=== PATIENT | male | born 1980 | race African-American/Black ===

== ENCOUNTER 2021-01-24 11:40 | Inpatient (IN) ==
--- NOTE | 2021-01-24 11:55 | Emergency Department Note ---
Impression & Plan Pneumonia due to COVID-19 virus, Hypoxia, Respiratory failure ED Provider Note NAME: RICHARD CY1957 JASS AGE: 40 SEX: M : 1980 ARRIVES VIA: Ambulance INFORMANT: Patient ED PROVIDER(S): Aki Reyes DO CHIEF COMPLAINT: Cough and shortness of breath HPI: Patient is a 40-year-old male who presents ER for upper respiratory symptoms. It started around the of this month. She has cough and congestion as well as decreased taste and smell. Admits to shortness of breath. Denies any chest pain. No belly pain, nausea, vomiting, or diarrhea. No dysur ia, urgency, or frequency. No other exacerbating or remitting factors. ROS: See above HPI for pertinent positives & negatives. A total of 10 systems reviewed and were otherwise negative. PAST MEDICAL HISTORY:See Below PAST SURGICAL HISTORY:See Below FAMILY HISTORY:See Below SOCIAL HISTORY:See Below HOME MEDICATIONS:See Below ALLERGIES:See Below VITALS:See Below PHYSICAL EXAMINATION: GENERAL: Sitting up in bed, alert, disheveled with a persistent cough on nasal cannula EYE EXAM: normal conjunctiva. PERRL and EOM's grossly intact. OROPHARYNX: Dry mucous membranes NECK: supple, no nuchal rigidity, no adenopathy, non-tender LUNGS: Clear to auscultation. Normal chest wall mechanics HEART: no murmurs, S1 normal and S2 normal ABDOMEN: abdomen soft, non-tender, normo-active bowel sounds, no masses, no rebound or guarding. UPPER EXTREMITIES: upper extremities are grossly normal. LOWER EXTREMITIES: No pitting edema. NEURO EXAM: Normal sensorium, cranial nerves II-XII grossly intact, normal s peech, no gross weakness of arms, no gross weakness of legs. MEDICAL DECISION MAKING: Patient 40-year-old male who presents ER for upper respiratory symptoms. Known Covid positive. Found to be hypoxic last night in the low 80s. Admits to cough congestion. IV was established blood was obtained. Labs show no significant leukocytosis or anemia. BMP with mild hyponatremia. Creatinine slightly up at 1.6 without any previous to compare to. LFTs bilirubin are unremarkable. Lipase was normal. Patient was Covid positive. He was given steroids and fluids. Chest x-ray with bilateral infiltrates. He remained on nasal cannula. Updated bedside admitted to the hospitalist for further work-up. Triage Nursing notes reviewed. Limited review of prior medical records performed Vital Signs: reviewed and remarkable for hypoxia Differential diagnosis: Differential diagnoses includes but is not limited to pneumonia, bronchitis, COPD/Asthma exacerbation, pneumothorax, pulmonary embolism, congestive heart failure, acute coronary syndrome ER treatment provided: See below Diagnostics interpreted by me: ECG: Sinus tachycardia rate of 101 Normal axis T wave inversion lead III No PVCs QTC 466 Cardiac Monitoring: An order was placed for continuous cardiac monitoring. The monitor shows a rate of 98 with sinus rhythm. Laboratory studies: As stated above and show below. Imaging studies: Chest x-ray with bilateral infiltrates Consultation(s): Discussed with Dr. Danielle Ernandez for admission Procedures: none Critical Care: I have personally spent 32 minutes of critical care time in the direct management of this patient. This includes bedside care, interpretation of diagnostic studies, and testing, discussion with consultants, patient, and family members, and other required patient management activities. This 32 minutes is in excess of all separately billable procedures. Past Med/Surg History Medical History (Updated 01/24/21 @ 15:13 by Aki Reyes DO) Obesity (BMI 30-39.9) Surgical History (Updated 01/24/21 @ 14:17 by Danielle Ernandez MD) No significant past surgical history Social History Smoking Status: Current every day smoker Allergies Allergies Allergy/AdvReac Type Severity Reaction Status Date / Time No Known Allergies Allergy Unverified 01/24/21 13:47 Home Meds Home Medications Medication Instructions Recorded Confirmed No Known Home Medications 01/24/21 01/24/21 Results & Data (ED) Vital Signs Vital Signs - 24 hr 01/24/21 12:17 01/24/21 13:41 Temperature 36.8 C Temperature Source Oral Pulse Rate 102 H Pulse Rate [Finger] 96 H Respiratory Rate 20 24 Blood Pressure 129/81 Blood Pressure [Left Arm] 147/83 H Blood Pressure Mean 97 Blood Pressure Mean [Left Arm] 104 Pulse Oximetry 92 95 Oxygen Delivery Method Nasal Cannula Nasal Cannula Oxygen Flow Rate 3 3 Sepsis Recent Fever Within 48 Hours No Sepsis New/Unexplained Change in Mental Status No Sepsis Action Taken by Nursing No Action Required Laboratory Data Result diagrams: 01/24/21 12:10 01/24/21 12:10 Lab Results 11/29/21 11/29/21 11/29/21 Range/Units 12:10 12:10 12:10 WBC 6.83 (4.8-10.8) K/uL RBC 5.10 (4.7-6.1) M/uL Hgb 13.7 L (14.0-18.0) g/dL Hct 40.4 L (42-52) % MCV 79.2 L (80-100) fL MCH 26.9 (25-34) pg MCHC 33.9 (32-36) g/dL RDW Std Deviation 38.4 (36.4-46.3) fL RDW Coeff of Rosie 13.4 (11.5-14.5) % Plt Count 170 (130-400) K/uL MPV 11.8 H (7.4-10.4) fL Immature Gran % (Auto) 0.3 % Neut % (Auto) 68.2 % Lymph % (Auto) 23.9 % [place] % (Auto) 7.2 % Eos % (Auto) 0.0 % Baso % (Auto) 0.4 % Neut # (Auto) 4.66 (1.4-6.5) K/uL Lymph # (Auto) 1.63 (1.2-3.4) K/uL [place] # (Auto) 0.49 (0.11-0.59) K/uL Eos # (Auto) 0.00 (0-0.5) K/uL Baso # (Auto) 0.03 (0-0.2) K/uL Immature Gran # (Auto) 0.02 (0.00-0.02) K/uL Sodium 129 L (136-145) mmol/L Potassium 3.9 (3.5-5.1) mmol/L Chloride 97 L (98-107) mmol/L Carbon Dioxide 21 (21-32) mmol/L Anion Gap 11.0 (3-11) BUN 36 H (7-18) mg/dl Creatinine 1.60 H (0.6-1.4) mg/dl Est Cr Clr Drug Dosing 82.0 ml/min Est GFR ( Amer) 62.4 ml/min Est GFR (Non-Af Amer) 53.9 ml/min BUN/Creatinine Ratio 22.4 H (10-20) Glucose 115 H (70-99) mg/dl Calcium 8.6 (8.5-10.1) mg/dl Total Bilirubin 0.5 (0.2-1) mg/dl AST 84 H (15-37) U/L ALT 43 (12-78) U/L Alkaline Phosphatase 45 (45-117) U/L Troponin I < 0.015 (0-0.045) ng/ml Total Protein 8.4 H (6.4-8.2) gm/dl Albumin 3.1 L (3.4-5.0) gm/dl Globulin 5.3 H (2.5-4.0) gm/dl Albumin/Globulin Ratio 0.6 L (0.9-2) Lipase 182 (73-393) U/L SARS-CoV-2 (PCR) POSITIVE A* (Negative) Administered Medications Remdesivir 200 mg/ Sodium (Chloride) 250 mls @ 125 mls/hr IV ONE STA; Protocol Stop: 01/24/21 15:41 Last Admin: 01/24/21 14:28 Dose: 125 mls/hr Documented by: [id number] Discontinued Medications Dexamethasone Sodium Phosphate (DexamethasonePf 10 Mg/Ml Vial) 6 mg IV NOW ONE Stop: 01/24/21 13:22 Last Admin: 01/24/21 13:39 Dose: 6 mg Documented by: [id number] Sodium Chloride (Nss 1000ml) 1,000 mls @ 999 mls/hr IV .Q1H1M ONE Stop: 01/24/21 14:21 Last Infusion: 01/24/21 14:28 Dose: 0 mls/hr Documented by: [id number] Admin: 01/24/21 13:39 Dose: 999 mls/hr Documented by: [id number] Imaging Data Radiologist's Impression: Chest X-Ray 01/24/21 11:52 XR chest 1V portable CLINICAL HISTORY: Chest Pain. COMPARISON STUDY: No previous studies for comparison. TECHNIQUE: 1 view of the chest FINDINGS: Single frontal view of the chest demonstrates the cardiomediastinal silhouette to be within normal limits. Patchy interstitial and alveolar opacities are present particularly at the lung bases bilaterally. The findings are most characteristic of a viral type pneumonitis. Covid 19 pneumonia should be excluded. There is no evidence for pleural effusion. There is no evidence for vascular congestion. There is no acute osseous pathology. IMPRESSION: Patchy interstitial and alveolar opacities bilaterally characteristic of a viral type pneumonitis and probable early Covid 19 pneumonia. ACT 112: Negative or not required by law. Electronically signed by: Ezio Lara M.D. 01/24/2021 12:33 PM Discharge Plan Visit Data Chief Complaint: Respiratory Problems ED Provider: Aki Reyes Discharge Problem: Pneumonia due to COVID-19 virus, Hypoxia, Respiratory failure Forms Stand Alone Forms: DrEd Online Doctor Prescriptions Prescriptions: No Action No Known Home Medications RF: 0 Referrals Referrals: PCP,NO [Physician] - Discharge Problem: Respiratory failure Qualifiers: Chronicity: acute Respiratory failure complication: hypoxia Qualified Code(s): J96.01 - Acute respiratory failure with hypoxia
[2021-01-24 12:28] LABS: Hematocrit (blood only) 40.4 % (42-52); Hemoglobin 13.7 g/dL (14.0-18.0); Mean Corpuscular Hemoglobin 26.9 pg (25-34); Mean Corpuscular Hgb Conc 33.9 g/dL (32-36); Mean Corpuscular Volume 79.2 fL (80-100); Mean Platelet Volume 11.8 fL (7.4-10.4); Platelet Count 170 K/uL (130-400); RDW Coefficient of Variation 13.4 % (11.5-14.5); RDW Standard Deviation 38.4 fL (36.4-46.3); White Blood Count 6.83 K/uL (4.8-10.8)
--- NOTE | 2021-01-24 12:35 | XRay Report ---
XR chest 1V portable CLINICAL HISTORY: Chest Pain. COMPARISON STUDY: No previous studies for comparison. TECHNIQUE: 1 view of the chest FINDINGS: Single frontal view of the chest demonstrates the cardiomediastinal silhouette to be within normal li mits. Patchy interstitial and alveolar opacities are present particularly at the lung bases bilateral ly. The findings are most characteristic of a viral type pneumonitis. Covid 19 pneumonia should be ex cluded. There is no evidence for pleural effusion. There is no evidence for vascular congestion. Ther e is no acute osseous pathology. IMPRESSION: Patchy interstitial and alveolar opacities bilaterally characteristic of a viral type pne umonitis and probable early Covid 19 pneumonia. ACT 112: Negative or not required by law. Electronically signed by: Ezio Lara M.D. 01/24/2021 12:33 PM
[2021-01-24 12:44] LABS: Alanine Aminotransferase 43 U/L (12-78); Albumin Level 3.1 gm/dl (3.4-5.0); Aspartate Aminotransferase 84 U/L (15-37); BUN Creatinine Ratio 22.4 (10-20); Blood Urea Nitrogen 36 mg/dl (7-18); Calcium 8.6 mg/dl (8.5-10.1); Carbon Dioxide 21 mmol/L (21-32); Chloride 97 mmol/L (98-107); Est GFR (African American) 62.4 ml/min; Est GFR (Non-African American) 53.9 ml/min; Glucose 115 mg/dl (70-99); Lipase 182 U/L (73-393); Potassium 3.9 mmol/L (3.5-5.1); Sodium 129 mmol/L (136-145)
[2021-01-24 12:49] LABS: Albumin Globulin Ratio 0.6 (0.9-2); Alkaline Phosphatase 45 U/L (45-117); Bilirubin,Total 0.5 mg/dl (0.2-1); Globulin 5.3 gm/dl (2.5-4.0); Total Protein 8.4 gm/dl (6.4-8.2); Troponin I < 0.015 ng/ml (0-0.045)
[2021-01-24 12:52] LABS: Basophils # (auto) 0.03 K/uL (0-0.2); Basophils % (auto) 0.4 %; Immature Granulocytes # (auto) 0.02 K/uL (0.00-0.02); Immature Granulocytes % (auto) 0.3 %; Lymphocytes # (auto) 1.63 K/uL (1.2-3.4); Lymphocytes % (auto) 23.9 %; Monocytes # (auto) 0.49 K/uL (0.11-0.59); Monocytes % (auto) 7.2 %; Neutrophils # (auto) 4.66 K/uL (1.4-6.5); Neutrophils % (auto) 68.2 %
--- NOTE | 2021-01-24 13:18 | History & Physical Report ---
Date of Service January 24, 2021 Assessment & Plan (1) Pneumonia due to COVID-19 virus: Plan: Symptoms ongoing for 7-8 days at the present prior to arrival Pulse ox 80% on room air at the present and 86% here, requiring 3 L nasal cannula to keep pulse ox greater than 92% Chest x-ray with bilateral infiltrates With diarrhea secondary to Covid-19 causing dehydration, hyponatremia, acute kidney injury He is unvaccinated for Covid-19 -Admit to medical floor telemetry, Covid unit on precautions -Was given 1 L of normal saline in the ER, will give 1 more liter of LR for hydration -Start dexamethasone 6 mg IV once daily x10-day course -Start Remdesivir x5-day course-creatinine clearance is greater than 30 despite the acute kidney injury and expect acute kidney injury to improve with hydration -Incentive spirometry, flutter valve -DuoNebs every 6 hours scheduled at least for the first 24 hours -Encouraged prone positioning if possible -Continue supplemental O2 via nasal cannula to keep pulse ox greater than 90-92% -Follow CBC, CMP, CRP in the morning (2) Hypoxia: Plan: As above, secondary to Covid-19 pneumonia (3) Hyponatremia: Plan: Sodium 129 on arrival likely secondary to dehydration from poor p.o. intake and diarrhea Hydrating with IV fluids x2 L total Follow BMP in the morning (4) AUGUSTINE (acute kidney injury): Plan: Creatinine 1.6 on arrival, BUN elevated No baseline to compare to but suspect this is an acute kidney injury No other electrolyte abnormalities except for hyponatremia and he is making urine Hydrate with IV fluids as above Follow BMP in the morning (5) Microcytic anemia: Plan: Mild microcytic anemia Check iron studies in the morning (6) Transaminitis: Plan: Mild elevation of transaminases likely secondary to COVID-19 infection, no abdominal pain Follow LFTs in the morning (7) Obesity (BMI 30-39.9): Plan: BMI 30.7 Needs weight loss Plan: DVT prophylaxis-Lovenox 40 mg SQ twice daily Disposition-admit to medical floor telemetry, Covid unit. Eventually back to alf when medically stable Full code History of Present Illness Chief Complaint: SOB, hypoxia, COVID Primary Care Provider: KAREEM Iris Pt is a 40 yo male prisoner with no PMH except previous smoking, who presents with worsening SOB and hypoxia at the alf after being diagnosed with COVID on 01/19. He is not vaccinated against COVID-19. His symptoms started on 01/16- 01/17 with cough, fatigue, diarrhea, poor appetite. He has been drinking fluids but not really eating much. He is having loose stools, 3-4 times a day. His O2 sat was 80% on RA today and he was sent over here. In ER, POx documented at 86% and was placed on 3LNC. CXR shows bilat PNA. He was also found to have hyponatremia and elevated cath lab and BUN with no baseline to compare to-suspect acute kidney injury. He will be admitted for COVID-19 PNA, hypoxia, hyponatremia, AUGUSTINE, and dehydration. Allergies Allergy/AdvReac Type Severity Reaction Status Date / Time No Known Allergies Allergy Unverified 01/24/21 13:47 Home Medications Medication Instructions Recorded Confirmed Type No Known Home Medications 01/24/21 01/24/21 History Past Med/Surg History Medical History (Updated 01/24/21 @ 15:28 by Danielle Ernandez MD) Microcytic anemia Obesity (BMI 30-39.9) Surgical History (Updated 01/24/21 @ 14:17 by Danielle Ernandez MD) No significant past surgical history Family History Other Family history non-contributory Social History (Updated 01/24/21 @ 15:24 by Danielle Ernandez MD) Smoking Status: Former smoker Tobacco Type: Cigarettes Age Quit Using Tobacco: 40; Years Smoked: 20; Hx Alcohol Use: No Hx Substance Use: No Current Living Situation Comment: Care Home Review of Systems Review of Systems: All systems reviewed & are unremarkable except as noted in HPI & below Physical Exam Constitutional: WD/WN, vitals as above Eyes: PERRL, conjunctivae normal, anicteric sclerae ENMT: external ear and nose normal, oropharynx normal (Except mildly dry mucous membranes) Neck: trachea midline, no thyromegaly Respiratory: normal respiratory effort; no cough Auscultation: + crackles (At bases bilaterally); no rhonchi and no wheezes Cardiovascular: RRR, no murmur, no edema Chest (Breasts): Chest: normal inspection of chest Gastrointestinal (Abdomen): normal bowel sounds, soft, nontender, no hepatosplenomegaly Musculoskeletal: Extremities: extremities normal to inspection; no cyanosis and no clubbing Skin: no rashes, warm and dry Neurologic: moves all extremities and awake; no focal motor deficits Psychiatric: A+Ox3, euthymic affect Lymphatic: no lymphedema Results & Data Results & Data ([facility]) Vital Signs (Past 12 Hours) Vital Signs Temp Pulse Resp BP Pulse Ox 01/24/21 12:17 36.8 C 102 H 20 129/81 92 Laboratory Results 01/24/21 01/24/21 01/24/21 Range/Units 12:10 12:10 12:10 WBC 6.83 (4.8-10.8) K/uL RBC 5.10 (4.7-6.1) M/uL Hgb 13.7 L (14.0-18.0) g/dL Hct 40.4 L (42-52) % MCV 79.2 L (80-100) fL MCH 26.9 (25-34) pg MCHC 33.9 (32-36) g/dL RDW Std Deviation 38.4 (36.4-46.3) fL RDW Coeff of Rosie 13.4 (11.5-14.5) % Plt Count 170 (130-400) K/uL MPV 11.8 H (7.4-10.4) fL Immature Gran % (Auto) 0.3 % Neut % (Auto) 68.2 % Lymph % (Auto) 23.9 % [place] % (Auto) 7.2 % Eos % (Auto) 0.0 % Baso % (Auto) 0.4 % Neut # (Auto) 4.66 (1.4-6.5) K/uL Lymph # (Auto) 1.63 (1.2-3.4) K/uL [place] # (Auto) 0.49 (0.11-0.59) K/uL Eos # (Auto) 0.00 (0-0.5) K/uL Baso # (Auto) 0.03 (0-0.2) K/uL Immature Gran # (Auto) 0.02 (0.00-0.02) K/uL Sodium 129 L (136-145) mmol/L Potassium 3.9 (3.5-5.1) mmol/L Chloride 97 L (98-107) mmol/L Carbon Dioxide 21 (21-32) mmol/L Anion Gap 11.0 (3-11) BUN 36 H (7-18) mg/dl Creatinine 1.60 H (0.6-1.4) mg/dl Est Cr Clr Drug Dosing 82.0 ml/min Est GFR ( Amer) 62.4 ml/min Est GFR (Non-Af Amer) 53.9 ml/min BUN/Creatinine Ratio 22.4 H (10-20) Glucose 115 H (70-99) mg/dl Calcium 8.6 (8.5-10.1) mg/dl Total Bilirubin 0.5 (0.2-1) mg/dl AST 84 H (15-37) U/L ALT 43 (12-78) U/L Alkaline Phosphatase 45 (45-117) U/L Troponin I < 0.015 (0-0.045) ng/ml Total Protein 8.4 H (6.4-8.2) gm/dl Albumin 3.1 L (3.4-5.0) gm/dl Globulin 5.3 H (2.5-4.0) gm/dl Albumin/Globulin Ratio 0.6 L (0.9-2) Lipase 182 (73-393) U/L SARS-CoV-2 (PCR) POSITIVE A* (Negative) Diagnostic Findings Chest X-Ray 01/24/21 11:52 XR chest 1V portable CLINICAL HISTORY: Chest Pain. COMPARISON STUDY: No previous studies for comparison. TECHNIQUE: 1 view of the chest FINDINGS: Single frontal view of the chest demonstrates the cardiomediastinal silhouette to be within normal limits. Patchy interstitial and alveolar opacities are present particularly at the lung bases bilaterally. The findings are most characteristic of a viral type pneumonitis. Covid 19 pneumonia should be excluded. There is no evidence for pleural effusion. There is no evidence for vascular congestion. There is no acute osseous pathology. IMPRESSION: Patchy interstitial and alveolar opacities bilaterally characteristic of a viral type pneumonitis and probable early Covid 19 pneumonia. ACT 112: Negative or not required by law. Electronically signed by: Ezio Lara M.D. 01/24/2021 12:33 PM ECG Additional Comments: EKG on 01/24/2021 at 1231 with sinus tachycardia, rate 101, otherwise normal Code Status & VTE Plan Code Status Full code VTE Prophylaxis Plan VTE Prophylaxis will be ordered: Yes PG Care Time/CCT Total # of Minutes Spent Total Time Spent with Patient: Total time spent is greater than 50% in coordination of care (as documented) at patient's floor/unit and/or counseling patient: Coding Level of Care Code 73132 Initial Inpt Care Lvl 3 Diagnoses Obesity (BMI 30-39.9) E66.9 Pneumonia due to COVID-19 virus U07.1; J12.82 Hypoxia R09.02 Hyponatremia E87.1 AUGUSTINE (acute kidney injury) N17.9 Microcytic anemia D50.9 Transaminitis R74.01
[2021-01-24] MEDS ORDERED: SODIUM CHLORIDE 0.9% 1000ML 1,000 ML IV ONE (13:21)
[2021-01-24] MEDS ORDERED: dexAMETHasone**PF** 10 MG/ML VIAL IV ONE (13:21)
[2021-01-24] MEDS ORDERED: REMDESIVIR 200 MG in SODIUM CHLORIDE 0.9% 210 ML IV STA (13:42)
--- NOTE | 2021-01-24 14:39 | Electrocardiogram Report ---
Test Reason : Blood Pressure : / mmHG Vent. Rate : 101 BPM Atrial Rate : 101 BPM P-R Int : 142 ms QRS Dur : 082 ms QT Int : 360 ms P-R-T Axes : 047 013 009 degrees QTc Int : 466 ms Sinus tachycardia Otherwise normal ECG No previous ECGs available Confirmed by Bronson Wen ([id number]) on 01/24/2021 2:38:59 PM Referred By: Confirmed By:Mayur Wen
[2021-01-24] MEDS ORDERED: ONDANSETRON INJ 2 MG/ML 2 ML VIAL IV PRN (16:51)
[2021-01-24] MEDS ORDERED: ACETAMINOPHEN 325 MG TAB PO PRN (16:51)
[2021-01-24] MEDS ORDERED: LACTATED RINGER'S 1,000 ML IV SCH (16:51)
[2021-01-24] MEDS ORDERED: LOPERAMIDE HCL 2 MG CAP PO PRN (16:51)
[2021-01-24] MEDS: ALBUT/IPRATROP 3MG/0.5MG NEB 3 ML VIAL NEB SCH ×2 (18:03→19:10)
[2021-01-24] MEDS: ENOXAPARIN INJ 40 MG/0.4 ML SYR SQ SCH (21:19)
[2021-01-25 06:19] LABS: Hematocrit (blood only) 37.1 % (42-52); Hemoglobin 12.5 g/dL (14.0-18.0); Mean Corpuscular Hemoglobin 26.8 pg (25-34); Mean Corpuscular Hgb Conc 33.7 g/dL (32-36); Mean Corpuscular Volume 79.4 fL (80-100); Mean Platelet Volume 12.1 fL (7.4-10.4); Platelet Count 160 K/uL (130-400); RDW Coefficient of Variation 13.7 % (11.5-14.5); RDW Standard Deviation 39.9 fL (36.4-46.3); Red Blood Count 4.67 M/uL (4.7-6.1); White Blood Count 4.31 K/uL (4.8-10.8)
[2021-01-25] MEDS: ALBUT/IPRATROP 3MG/0.5MG NEB 3 ML VIAL NEB SCH ×3 (07:10→13:30)
[2021-01-25 07:11] LABS: Alanine Aminotransferase 43 U/L (12-78); Albumin Globulin Ratio 0.6 (0.9-2); Albumin Level 2.7 gm/dl (3.4-5.0); Alkaline Phosphatase 43 U/L (45-117); Aspartate Aminotransferase 72 U/L (15-37); BUN Creatinine Ratio 26.5 (10-20); Bilirubin,Total 0.4 mg/dl (0.2-1); Blood Urea Nitrogen 29 mg/dl (7-18); C Reactive Protein 9.55 mg/dl (0-0.29); Calcium 8.4 mg/dl (8.5-10.1); Carbon Dioxide 23 mmol/L (21-32); Chloride 103 mmol/L (98-107); Creatinine Clr Calc Pharmacy 121.5 ml/min; Est GFR (African American) 100.4 ml/min; Est GFR (Non-African American) 86.6 ml/min; Ferritin 1102.9 ng/ml (8-388); Globulin 4.9 gm/dl (2.5-4.0); Glucose 143 mg/dl (70-99); Magnesium 3.4 mg/dl (1.8-2.4); Potassium 4.7 mmol/L (3.5-5.1); Sodium 133 mmol/L (136-145); Total Iron Binding Capacity 216 mcg/dl (250-450); Total Protein 7.6 gm/dl (6.4-8.2); Transferrin 158 mg/dl (200-360)
[2021-01-25 07:26] LABS: Basophils # (auto) 0.02 K/uL (0-0.2); Basophils % (auto) 0.5 %; Immature Granulocytes # (auto) 0.02 K/uL (0.00-0.02); Immature Granulocytes % (auto) 0.5 %; Lymphocytes # (auto) 1.18 K/uL (1.2-3.4); Lymphocytes % (auto) 27.4 %; Monocytes # (auto) 0.37 K/uL (0.11-0.59); Monocytes % (auto) 8.6 %; Neutrophils # (auto) 2.72 K/uL (1.4-6.5)
[2021-01-25] MEDS ORDERED: DEXAMETHASONE SOD INJ 4 MG/ML VIAL ONE (07:54)
[2021-01-25 08:06] LABS: RBC Morphology Unremarkable
--- NOTE | 2021-01-25 09:18 | XRay Report ---
XR chest 1V portable CLINICAL HISTORY: covid-19; worsening hypoxia. COMPARISON STUDY: 01/24/2021 TECHNIQUE: 1 view of the chest FINDINGS: Single frontal view of the chest demonstrates the cardiomediastinal silhouette to be within normal li mits. Compared to the previous examination, there is interval increase in patchy interstitial and pérez eolar opacities are present bilaterally. The findings are most characteristic of a viral type pneumon itis. Covid 19 pneumonia should again be excluded. There is no evidence for pleural effusion. There i s no evidence for vascular congestion. There is no acute osseous pathology. IMPRESSION: Compared to the previous examination, there is interval increase in patchy interstitial a nd alveolar opacities bilaterally characteristic of a viral type pneumonitis and probable Covid 19 pn eumonia. ACT 112: Negative or not required by law. Electronically signed by: Ezio Lara M.D. 01/25/2021 9:16 AM
[2021-01-25] MEDS ORDERED: FUROSEMIDE 40 MG/4 ML VIAL IV ONE (09:45)
[2021-01-25] MEDS: ENOXAPARIN INJ 40 MG/0.4 ML SYR SQ SCH ×2 (09:59→23:46)
[2021-01-25] MEDS: dexAMETHasone 6 MG in SYRINGE 0 ML IV SCH (10:07)
[2021-01-25] MEDS: REMDESIVIR 100 MG in SODIUM CHLORIDE 0.9% 230 ML IV SCH (13:13)
[2021-01-25] MEDS: SODIUM CHLORIDE 0.9% 10ML FLUSH IV SCH (16:01)
[2021-01-25] MEDS ORDERED: ALBUT/IPRATROP 3MG/0.5MG NEB 3 ML VIAL NEB PRN (16:16)
--- NOTE | 2021-01-25 22:59 | Hospitalist Progress Note ---
Date of Service January 25, 2021 Assessment & Plan (1) Acute respiratory failure with hypoxia: Plan: 2nd to COVID pneumonia. O2 requirements escalated this am, but was able to be weaned back down by afternoon. See below. (2) Pneumonia due to COVID-19 virus: Plan: moderate. cxr today WORSE than previous x-ray. Day 8 or 9 of illness. Day #2 of dexamethasone 6 mg IV once daily x 10 day course. Day #2 of Remdesivir 5-day course. Self-proning encouraged - he is doing such. Continue Incentive spirometry, flutter valve. Bronchodilators prn. O2 to keep sats >92%. CRP is elevated -- if patient's FiO2 requirements worsen he would be a candidate for Baricitinib treatment. repeat CRP, CPK, etc in am. (3) Hyponatremia: Plan: 129 --> 133 s/p 2 L of fluids overnight. BMP in am. (4) AUGUSTINE (acute kidney injury): Plan: Creatinine 1.6 on arrival; now 1. 2nd to volume depletion from diarrhea/poor po intake, COVID-19 itself, etc. (5) Microcytic anemia: Plan: Iron studies not c/w Fe deficiency. He likely has an underlying thalaseemia given his ethnicity. Consider outpatient hemoglobin electropheresis. Trend CBC. (6) Transaminitis: Plan: Likely secondary to COVID-19 infection Repeat AST am Check CPK to be complete (7) Obesity (BMI 30-39.9): Plan: BMI 30.7 (8) DVT prophylaxis: Plan: lovenox 40mg bid he remains at risk of worsening disease Admission and Anticipated Discharge Date Admission Date: January 24, 2021 Subjective contacted by nursing staff this am that pt was having hypoxia into the 80s oxymask was increased to 15 L ordered cxr - infiltrates worse lasix 20mg x 1 given upon arrival patient was proned and sleeping guards at bedside o2 sats were mid 90s on oxymask patient states "that he feels better than yesterday" denies any h/o asthma or other lung conditions later in the afternoon O2 was able to be weaned to 4 liters and o2 sats were low-mid 90s on such guards report that patient snores when asleep Review of Systems Review of Systems: gen - no fevers; c/o anorexia and fatigue musculo - myalgias cv - no chest pain or pleurisy GI - no nausea or emesis pulm - no sputum Physical Exam Physical Exam: gen - proned, no distress, easily awakens from sleep, oriented mouth - MMM neck - no JVD heart - RRR, s1 s2, no murmur lungs - bibasilar rales, no wheeze abd - soft NT ND BS+ ext - no edema, pulses 2+ b/l Results & Data Results & Data ([facility]) Vital Signs (Past 12 Hours) Vital Signs Pulse Resp BP Pulse Ox Pulse Ox 01/25/21 19:15 92 H 17 114/71 92 92 01/25/21 15:30 90 16 139/72 95 01/25/21 13:30 86 20 94 01/25/21 12:00 83 20 118/67 92 Laboratory Results Laboratory Results - last 24 hr 01/25/21 01/25/21 01/25/21 05:40 05:40 07:52 WBC 4.31 L RBC 4.67 L Hgb 12.5 L Hct 37.1 L MCV 79.4 L MCH 26.8 MCHC 33.7 RDW Std Deviation 39.9 RDW Coeff of Rosie 13.7 Plt Count 160 MPV 12.1 H Immature Gran % (Auto) 0.5 Neut % (Auto) 63.0 Lymph % (Auto) 27.4 [place] % (Auto) 8.6 Eos % (Auto) 0.0 Baso % (Auto) 0.5 Neut # (Auto) 2.72 Lymph # (Auto) 1.18 L [place] # (Auto) 0.37 Eos # (Auto) 0.00 Baso # (Auto) 0.02 Immature Gran # (Auto) 0.02 RBC Morphology Unremarkable Sodium 133 L Potassium 4.7 D Chloride 103 Carbon Dioxide 23 Anion Gap 7.0 BUN 29 H Creatinine 1.08 Est Cr Clr Drug Dosing 121.5 Est GFR ( Amer) 100.4 Est GFR (Non-Af Amer) 86.6 BUN/Creatinine Ratio 26.5 H Glucose 143 H Calcium 8.4 L Magnesium 3.4 H Iron 52 TIBC 216 L Transferrin 158 L Transferrin % Sat Not Reportable Ferritin 1102.9 H Total Bilirubin 0.4 AST 72 H ALT 43 Alkaline Phosphatase 43 L C-Reactive Protein 9.55 H Total Protein 7.6 Albumin 2.7 L Globulin 4.9 H Albumin/Globulin Ratio 0.6 L PG Care Time/CCT Total # of Minutes Spent Total Time Spent with Patient: Total time spent is greater than 50% in coordination of care (as documented) at patient's floor/unit and/or counseling patient: Coding Level of Care Code 13245 Subseq Hosp Care Lvl 3 Diagnoses Pneumonia due to COVID-19 virus U07.1; J12.82 Hyponatremia E87.1 AUGUSTINE (acute kidney injury) N17.9 Microcytic anemia D50.9 Transaminitis R74.01 Obesity (BMI 30-39.9) E66.9 Acute respiratory failure with hypoxia J96.01 DVT prophylaxis Z29.9
[2021-01-26 05:44] LABS: BUN Creatinine Ratio 25.1 (10-20); Calcium 8.3 mg/dl (8.5-10.1); Creatinine Clr Calc Pharmacy 105.8 ml/min; Est GFR (African American) 84.9 ml/min; Est GFR (Non-African American) 73.3 ml/min; Potassium 4.5 mmol/L (3.5-5.1)
[2021-01-26 05:47] LABS: C Reactive Protein 4.61 mg/dl (0-0.29)
[2021-01-26 05:54] LABS: Hematocrit (blood only) 36.5 % (42-52); Hemoglobin 12.1 g/dL (14.0-18.0); Mean Corpuscular Hemoglobin 26.5 pg (25-34); Mean Corpuscular Hgb Conc 33.2 g/dL (32-36); Mean Corpuscular Volume 79.9 fL (80-100); Mean Platelet Volume 10.9 fL (7.4-10.4); Platelet Count 273 K/uL (130-400); RDW Coefficient of Variation 13.5 % (11.5-14.5); RDW Standard Deviation 39.5 fL (36.4-46.3); Red Blood Count 4.57 M/uL (4.7-6.1); White Blood Count 5.81 K/uL (4.8-10.8)
[2021-01-26] MEDS: ENOXAPARIN INJ 40 MG/0.4 ML SYR SQ SCH ×2 (08:39→21:21)
[2021-01-26] MEDS: dexAMETHasone 6 MG in SYRINGE 0 ML IV SCH (08:40)
[2021-01-26] MEDS: REMDESIVIR 100 MG in SODIUM CHLORIDE 0.9% 230 ML IV SCH (12:01)
[2021-01-26] MEDS: SODIUM CHLORIDE 0.9% 10ML FLUSH IV SCH (13:15)
--- NOTE | 2021-01-26 22:38 | Hospitalist Progress Note ---
Date of Service January 26, 2021 Assessment & Plan (1) Acute respiratory failure with hypoxia: Plan: 2nd to COVID pneumonia. improving. NC O2 has been weaned since yesterday. (2) Pneumonia due to COVID-19 virus: Plan: moderate. improved today. He is about day 10 of his illness. Day #3 of dexamethasone 6 mg IV once daily x 10 day course. Day #3 of Remdesivir 5-day course. Self-proning encouraged - he is doing such. Continue Incentive spirometry, flutter valve. Bronchodilators prn. O2 to keep sats >92%. CRP is elevated but improved today. (3) Hyponatremia: Plan: 129 --> 133 --> 135. resolved. bmp am. (4) AUGUSTINE (acute kidney injury): Plan: Creatinine 1.6 on arrival; now 1-1.2. 2nd to volume depletion from diarrhea/poor po intake, COVID-19 itself, etc. (5) Microcytic anemia: Plan: Iron studies not c/w Fe deficiency. He likely has an underlying thalaseemia given his ethnicity. Consider outpatient hemoglobin electropheresis. Trend CBC. (6) Transaminitis: Plan: Likely secondary to COVID-19 infection Repeat AST am CPK wnl. (7) Obesity (BMI 30-39.9): Plan: BMI 30.7 (8) DVT prophylaxis: Plan: lovenox 40mg bid Admission and Anticipated Discharge Date Admission Date: January 24, 2021 Subjective patient feels better today less HARE still coughing he is being good about proning eating a little better no further diarrhea remains on 4 L NC O2 Review of Systems Review of Systems: gen - no fevers or chills; ongoing fatigue cv - no chest pain or orthopnea pulm - no sputum GI - no N/V skin - no rash Physical Exam Physical Exam: gen - looks better today, NAD mouth - MMM neck - no JVD heart - RRR, s1 s2, no murmur lungs - bibasilar rales R>L, no wheeze, good air movement abd - soft NT ND BS+ ext - no edema, pulses 2+ b/l psych - a/o x 3 Results & Data Results & Data ([facility]) Vital Signs (Past 12 Hours) Vital Signs Pulse Pulse Resp BP Pulse Ox 01/26/21 20:34 88 18 124/80 93 01/26/21 18:38 76 29 H 119/60 93 01/26/21 15:35 84 19 96/69 L 97 01/26/21 13:54 81 24 99 01/26/21 13:00 83 20 92 01/26/21 12:00 78 25 H 94 01/26/21 11:00 14 91 Laboratory Results Laboratory Results - last 24 hr 01/26/21 01/26/21 05:05 05:05 WBC 5.81 RBC 4.57 L Hgb 12.1 L Hct 36.5 L MCV 79.9 L MCH 26.5 MCHC 33.2 RDW Std Deviation 39.5 RDW Coeff of Rosie 13.5 Plt Count 273 D MPV 10.9 H Sodium 135 L Potassium 4.5 Chloride 104 Carbon Dioxide 29 Anion Gap 2.0 L BUN 31 H Creatinine 1.24 Est Cr Clr Drug Dosing 105.8 Est GFR ( Amer) 84.9 Est GFR (Non-Af Amer) 73.3 BUN/Creatinine Ratio 25.1 H Glucose 170 H Calcium 8.3 L AST 71 H ALT 58 Total Creatine Kinase 301 C-Reactive Protein 4.61 H PG Care Time/CCT Total # of Minutes Spent Total Time Spent with Patient: Total time spent is greater than 50% in coordination of care (as documented) at patient's floor/unit and/or counseling patient: Coding Level of Care Code 30306 Subseq Hosp Care Lvl 2 Diagnoses Acute respiratory failure with hypoxia J96.01 Pneumonia due to COVID-19 virus U07.1; J12.82 Hyponatremia E87.1 AUGUSTINE (acute kidney injury) N17.9 Microcytic anemia D50.9 Transaminitis R74.01 Obesity (BMI 30-39.9) E66.9 DVT prophylaxis Z29.9
[2021-01-27] MEDS: dexAMETHasone 6 MG in SYRINGE 0 ML IV SCH (09:26)
[2021-01-27] MEDS: ENOXAPARIN INJ 40 MG/0.4 ML SYR SQ SCH ×2 (09:26→23:09)
[2021-01-27 09:29] LABS: D Dimer 380 ug/L FEU (0-500)
[2021-01-27 09:37] LABS: BUN Creatinine Ratio 24.6 (10-20); Calcium 8.2 mg/dl (8.5-10.1); Creatinine Clr Calc Pharmacy 126.2 ml/min; Est GFR (African American) 105.1 ml/min; Est GFR (Non-African American) 90.7 ml/min; Potassium 4.2 mmol/L (3.5-5.1)
[2021-01-27 09:46] LABS: Creatinine Clr Calc Pharmacy 128.7 ml/min; Est GFR (African American) 107.6 ml/min; Est GFR (Non-African American) 92.8 ml/min
[2021-01-27] MEDS: REMDESIVIR 100 MG in SODIUM CHLORIDE 0.9% 230 ML IV SCH (11:43)
--- NOTE | 2021-01-27 11:47 | Hospitalist Progress Note ---
Date of Service January 27, 2021 Assessment & Plan (1) Acute respiratory failure with hypoxia: Plan: 2nd to COVID pneumonia. slowly improving. NC O2 remains stable on 4 L. wean as tolerated. (2) Pneumonia due to COVID-19 virus: Plan: moderate. improved again. He is about day 11 of his illness. Day #4 of dexamethasone 6 mg IV once daily x 10 day course. Day #4 of Remdesivir 5-day course. Self-proning encouraged - he is doing such. Continue Incentive spirometry, flutter valve. Bronchodilators prn. O2 to keep sats >92%. CRP improved. (3) Hyponatremia: Plan: 129 --> 133 --> 135. resolved. bmp am. (4) AUGUSTINE (acute kidney injury): Plan: Creatinine 1.6 on arrival; now 1-1.2. 2nd to volume depletion from diarrhea/poor po intake, COVID-19 itself, etc. (5) Microcytic anemia: Plan: Iron studies not c/w Fe deficiency. He likely has an underlying thalaseemia given his ethnicity. Consider outpatient hemoglobin electropheresis. Trend CBC. (6) Transaminitis: Plan: Likely secondary to COVID-19 infection Repeat AST am CPK wnl. (7) Obesity (BMI 30-39.9): Plan: BMI 30.7 (8) DVT prophylaxis: Plan: lovenox 40mg bid Plan: glucoses have been high intermittently check a1c, r/o DM Admission and Anticipated Discharge Date Admission Date: January 24, 2021 Subjective pt "feeling better" still with cough and mild HARE - but no worse than previous eating drinking no diarrhea no new complaints Review of Systems Review of Systems: gen - no fevers or chills cv - no orthopnea or cp GI - no abd pain - voiding fine Physical Exam Physical Exam: gen - continues to look better today, NAD mouth - MMM neck - no JVD heart - RRR, s1 s2, no murmur lungs - bibasilar rales R>L, no wheeze, good air movement - lung exam unchanged abd - soft NT ND BS+ ext - no edema, pulses 2+ b/l psych - a/o x 3 Results & Data Results & Data ([facility]) Vital Signs (Past 12 Hours) Vital Signs Pulse Resp BP Pulse Ox 01/27/21 09:27 93 01/27/21 08:00 80 23 106/63 94 01/27/21 05:37 80 20 109/58 L 92 01/27/21 04:00 78 18 100/63 94 01/27/21 01:00 72 117/62 93 Laboratory Results Laboratory Results - last 24 hr 01/27/21 01/27/21 01/27/21 08:08 08:08 08:08 D-Dimer 380 Sodium 138 Potassium 4.2 Chloride 106 Carbon Dioxide 24 Anion Gap 8.0 BUN 26 H Creatinine 1.02 1.04 Est Cr Clr Drug Dosing 128.7 126.2 Est GFR ( Amer) 107.6 105.1 Est GFR (Non-Af Amer) 92.8 90.7 BUN/Creatinine Ratio 24.6 H Glucose 106 H Calcium 8.2 L AST 61 H ALT 76 PG Care Time/CCT Total # of Minutes Spent Total Time Spent with Patient: Total time spent is greater than 50% in coordination of care (as documented) at patient's floor/unit and/or counseling patient: Coding Level of Care Code 46306 Subseq Hosp Care Lvl 2 Diagnoses Acute respiratory failure with hypoxia J96.01 Pneumonia due to COVID-19 virus U07.1; J12.82 Hyponatremia E87.1 AUGUSTINE (acute kidney injury) N17.9 Microcytic anemia D50.9 Transaminitis R74.01 Obesity (BMI 30-39.9) E66.9 DVT prophylaxis Z29.9
[2021-01-27] MEDS: SODIUM CHLORIDE 0.9% 10ML FLUSH IV SCH (12:50)
[2021-01-28] MEDS: ENOXAPARIN INJ 40 MG/0.4 ML SYR SQ SCH (08:40)
[2021-01-28] MEDS: dexAMETHasone 6 MG in SYRINGE 0 ML IV SCH (08:40)
[2021-01-28 08:44] LABS: Estimated Average Glucose 157 mg/dl; Hemoglobin A1C 7.1 % (4.5-5.6)
[2021-01-28 09:02] LABS: BUN Creatinine Ratio 22.5 (10-20); Calcium 8.4 mg/dl (8.5-10.1); Creatinine Clr Calc Pharmacy 127.4 ml/min; Est GFR (African American) 106.3 ml/min; Est GFR (Non-African American) 91.7 ml/min; Potassium 4.6 mmol/L (3.5-5.1)
[2021-01-28] MEDS: REMDESIVIR 100 MG in SODIUM CHLORIDE 0.9% 230 ML IV SCH (11:55)
[2021-01-28] MEDS: SODIUM CHLORIDE 0.9% 10ML FLUSH IV SCH (12:55)
--- NOTE | 2021-01-28 13:51 | Discharge Summary ---
Date of Service date of admission - January 24, 2021 date of discharge - January 28, 2021 Admission HPI Per Admitting Provider Pt is a 40 yo male prisoner with no PMH except previous smoking, who presents with worsening SOB and hypoxia at the nursing home after being diagnosed with COVID on 01/19. He is not vaccinated against COVID-19. His symptoms started on 01/16- 01/17 with cough, fatigue, diarrhea, poor appetite. He has been drinking fluids but not really eating much. He is having loose stools, 3-4 times a day. His O2 sat was 80% on RA today and he was sent over here. In ER, POx documented at 86% and was placed on 3LNC. CXR shows bilat PNA. 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 He will be admitted for COVID-19 PNA, hypoxia, hyponatremia, AUGUSTINE, and dehydration. Principal Diagnosis acute hypoxic respiratory failure 2nd COVID-19 pneumonia Discharge Exam gen - NAD, nontoxic mouth - MMM neck - no JVD heart - RRR, s1 s2, no murmur lungs - bibasilar rales R>L, no wheeze, good air movement; no increased work of breathing abd - soft NT ND BS+ ext - no edema, pulses 2+ b/l psych - a/o x 3 Discharge Data Allergies Allergy/AdvReac Type Severity Reaction Status Date / Time No Known Allergies Allergy Unverified 01/24/21 13:47 Procedures Performed 2-step ambulatory oxygen test - need for 3 liters of NC O2 at rest and with ambulation Ordered Studies Chest X-Ray 01/24/21 11:52 XR chest 1V portable CLINICAL HISTORY: Chest Pain. COMPARISON STUDY: No previous studies for comparison. TECHNIQUE: 1 view of the chest FINDINGS: Single frontal view of the chest demonstrates the cardiomediastinal silhouette to be within normal limits. Patchy interstitial and alveolar opacities are present particularly at the lung bases bilaterally. The findings are most characteristic of a viral type pneumonitis. Covid 19 pneumonia should be excluded. There is no evidence for pleural effusion. There is no evidence for vascular congestion. There is no acute osseous pathology. IMPRESSION: Patchy interstitial and alveolar opacities bilaterally characteristic of a viral type pneumonitis and probable early Covid 19 pneumonia. ACT 112: Negative or not required by law. Electronically signed by: Ezio Lara M.D. 01/24/2021 12:33 PM Chest X-Ray 01/25/21 08:17 XR chest 1V portable CLINICAL HISTORY: covid-19; worsening hypoxia. COMPARISON STUDY: 01/24/2021 TECHNIQUE: 1 view of the chest FINDINGS: Single frontal view of the chest demonstrates the cardiomediastinal silhouette to be within normal limits. Compared to the previous examination, there is interval increase in patchy interstitial and alveolar opacities are present bilaterally. The findings are most characteristic of a viral type pneumonitis. Covid 19 pneumonia should again be excluded. There is no evidence for pleural effusion. There is no evidence for vascular congestion. There is no acute osseous pathology. IMPRESSION: Compared to the previous examination, there is interval increase in patchy interstitial and alveolar opacities bilaterally characteristic of a viral type pneumonitis and probable Covid 19 pneumonia. ACT 112: Negative or not required by law. Electronically signed by: Ezio Lara M.D. 01/25/2021 9:16 AM Hospital Course (1) Acute respiratory failure with hypoxia: 2nd to COVID pneumonia. Slowly improved with measures as listed in #2 below. Peak NC O2 was about 10 L, weaning to 3 L NC O2 at discharge. Will require 3 L NC O2 continuously upon discharge to [facility]. (2) Pneumonia due to COVID-19 virus: Moderate-severe. He was about day 11-12 into his illness at time of discharge. Completed a 5-day course of Remdesivir while here. He also received 5 days of IV dexamethasone daily and will complete 5 more days of 6mg dexamethasone daily post-discharge. He was diligent about Self-proning and pulmonary toilet including incentive spirometry, flutter valve, etc. He had no evidence of complicating CHF or bacterial superinfection. Peak CRP was 9.5, improving to 4.6 before discharge. He did not qualify for tocilizumab or baricitinib. He will need a repeat cxr in 4-6 weeks to ensure radiographic resolution of his pneumonia. (3) Hyponatremia: 129 --> 133 --> 135. resolved with IV fluids and supportive care. (4) AUGUSTINE (acute kidney injury): Creatinine 1.6 on arrival; now 1-1.2. 2nd to volume depletion from diarrhea/poor po intake, COVID-19 itself, etc. (5) Microcytic anemia: Iron studies not c/w Fe deficiency. He likely has an underlying thalaseemia given his ethnicity. Consider outpatient hemoglobin electropheresis. Discharge hemoglobin = 12.1. (6) Transaminitis: Likely secondary to COVID-19 infection AST peak was 84, improving to 46 at discharge. CPK wnl. Needs repeat LFTs in about 1 week to ensure resolution. (7) Obesity (BMI 30-39.9): BMI 30.7 (8) DVT prophylaxis: Lovenox 40mg bid while hospitalized. Recommend 30 days of low-dose Xarelto, 10mg once daily, upon discharge for DVT prophylaxis. (9) Type 2 diabetes mellitus: Hemoglobin a1c was 7.1%. This is a NEW diagnosis for the patient. He was informed that he has mild T2DM. Recommend dietary control +/- metformin. Check BSGs 2x's daily upon transfer to [facility]. Total Time Total Time Spent Total Time Spent (In Minutes): 45 Discharge Plan Discharge Items [facility]position[facility] Reason For Visit: HYPOXIA, COVID PNEUMONIA Discharge Diagnosis: 1. COVID-19 pneumonia 2. acute hypoxic respiratory failure due to #1 3. minimally elevated AST - due to COVID illness 4. newly diagnosed Type 2 diabetes Activity: As commented below Activity Comment: gradually increase your activities over the next 1-2 weeks Non-emergency contact: Primary Care Provider Call non-emergency contact if: you have any medication questions and your symptoms worsen Follow-up/Referrals: Iris SERNA [Primary Care Provider] - Diet: Carb Consistent or DM2 Addtl Attending Provider Instructions: Mr Larson was treated for COVID-19 pneumonia at [facility]. He completed a 5-day course of Remdesivir. He received 5 days of IV dexamethasone. He required oxygen his entire stay. Symptoms are improving albeit slowly as expected. He is a new onset type 2 diabetic. Hemoglobin a1c was 7.1%. Recommendations - 1. dexamethasone steroid 6mg daily x 5 days beginning 01/29/2021. 2. pepcid 20mg twice daily x 30 days. 3. xarelto 10mg once daily x 30 days. If you do not have xarelto available please give lovenox 40mg SC once daily x 30 days. This is for DVT prophylaxis while recovering from COVID. Start the xarelto on 01/29/21. 4. oxygen - 3 liters continuously (rest, sleep, and with activity). 5. PRONE as much as possible. 6. flutter valve as much as possible. 7. albuterol 2 puffs every 4 hours as needed for cough/wheeze/shortness of breath. 8. patient has microcytic anemia but iron studies here were normal. Consider hemoglobin electropheresis to rule out thalaseemia. 9. check blood sugars twice daily. 10. if blood sugars are consistently greater than 150 please consider starting metformin. 11. repeat cxr in 4-6 weeks. 12. repeat LFTs in 1 week due to recent AST elevation from COVID. Pending Studies at Discharge: No Stand-Alone Forms: My [facility] Skilled Items Patient informed of condition?: Yes Discharge Level of Care: Other Communicable Disease: Yes Discharge Prognosis: Improving Lines: None Urinary Catheter: No Medications and DC Order Prescriptions: New dexamethasone 6 mg tablet 6 mg PO DAILY 5 Days Qty: 5 RF: 0 famotidine [Pepcid] 20 mg tablet 20 mg PO BID 30 Days Qty: 60 RF: 0 Xarelto 10 mg tablet 10 mg PO DAILY 30 Days Qty: 30 RF: 0 albuterol sulfate [Ventolin HFA] 90 mcg/actuation HFA aerosol inhaler 2 inh inhalation Q4H PRN (Reason: shortness of breath or wheezing) Qty: 6.7 RF: 0 (DME) Oxygen Home Liters Per Minute See Rx Instructions .ROUTE .MEDSUPPLY Qty: 1 RF: 0 Discharge Orders: Discharge Order (Routine); Ordered 01/28/21 Ordered By: Yong Fong/Other Patient Handouts: 5 Steps for Eating Healthier, Exercise: Why Fitness Matters, Type 2 Diabetes Admission Data Admit Date/Time: 01/24/21 13:42 Attending Provider: Yong Sinha Admit Provider: Danielle Ernandez Primary Care Provider: Iris SERNA Other Interventions: Discharge Summary Assessment (RN) Last Done: 01/28/21 15:10 Coding Level of Care Code D/C DAY MANAGEMENT >30 MINS Diagnoses Acute respiratory failure with hypoxia J96.01 Pneumonia due to COVID-19 virus U07.1; J12.82 Hyponatremia E87.1 AUGUSTINE (acute kidney injury) N17.9 Microcytic anemia D50.9 Transaminitis R74.01 Obesity (BMI 30-39.9) E66.9 DVT prophylaxis Z29.9 Type 2 diabetes mellitus E11.9
== END 2021-01-28 15:15 | DRG 177 ==
LOC: ED 11:40 → SUATTDRO 13:42 → EDINP 13:42
DX: J12.82 Pneumonia due to coronavirus disease 2019; U07.1 COVID-19; N17.9 Acute kidney failure, unspecified; D50.9 Iron deficiency anemia, unspecified; Z68.30 Body mass index [BMI] 30.0-30.9, adult; R74.01 Elevation of levels of liver transaminase levels; J96.01 Acute respiratory failure with hypoxia; E86.0 Dehydration; E66.9 Obesity, unspecified; E11.9 Type 2 diabetes mellitus without complications; Z87.891 Personal history of nicotine dependence; A08.39 Other viral enteritis; E87.1 Hypo-osmolality and hyponatremia